=== PATIENT | female | born 1970 | race Caucasian/White ===

== ENCOUNTER 2021-02-11 17:45 | Outpatient (CLI) | payer OTHER, SELFPAY ==
--- NOTE | ~2021-02-11 | XR_ITS ---
EXAMINATION: XR abdomen obstructive series EXAM DATE: 02/11/2021 18:08 INDICATION: Nausea And Vomiting w/ all over abd pain x 2days. TECHNIQUE: Frontal upright projection of the upper abdomen, frontal projection of the lower abdomen f or interpretation. There is no prior study for comparison. FINDINGS: There is expected amount of colonic stool and gas. No small bowel dilation, nonobstructiv e bowel gas pattern. There are no suspicious calcifications identified. There is no organomegaly suspected. The bones are unremarkable. There is no free intraperitoneal air. The lung bases are clear. IMPRESSION: Unremarkable abdomen x-ray exam. Reviewed, dictated and finalized at location A. [employer]PERATOR
== END 2021-02-11 17:46 | disposition home or self-care (01) ==
LOC: ANHIMG 17:51
PROVIDERS: PCP Physician Assistant; Visit Provider Physician Assistant
DX: R11.2 Nausea with vomiting, unspecified (principal)
CPT/HCPCS: 74019

== ENCOUNTER 2022-02-22 18:00 | Emergency (ER) | payer BC, SELFPAY ==
--- NOTE | 2022-02-22 18:07 | ED.FEMALEGU ---
HPI - Female Genitourinary General Chief complaint: Urogenital-Female Stated complaint: URINARY PRESSURE/NAUSEA/ABD PAIN/STREP EXPOSURE Time Seen by Provider: 02/22/22 18:07 Source: patient and RN notes reviewed History of Present Illness HPI Narrative: PATIENT IS A 51-YEAR-OLD FEMALE WHO PRESENTS TO URGENT CARE WITH COMPLAINTS OF POSSIBLE UTI. PATIENT STATES THAT SINCE YESTERDAY SHE HAS HAD SUPRAPUBIC PRESSURE, NAUSEA AND HAD SOME DRY HEAVES THIS AFTERNOON. PATIENT DENIES ANY FEVERS BUT STATES SHE HAS HAD CHILLS AND A HEADACHE. PATIENT HAS TAKEN ADVIL AND 2 DOSES OF AZO TODAY. DENIES ANY HEMATURIA. PATIENT ALSO STATES THAT HER SON IS POSITIVE FOR STREP AND SHE IS CONCERNED THAT HER SYMPTOMS MAY BE CONSISTENT FOR STREP THROAT. PATIENT HAS HAD HER TONSILS REMOVED BUT STATES SHE HAS HAD STREP SINCE THEN. CURRENTLY DENIES A SORE THROAT. NO OTHER ACUTE COMPLAINTS. NO ACUTE DISTRESS NOTED. PATIENT AWARE OF THE PLAN OF CARE. SOME PARTS OF THIS DICTATION WERE GENERATED BY VOICE RECOGNITION SOFTWARE AND MAY CONTAIN TYPOGRAPHICAL AND/OR GRAMMATICAL INACCURACIES. Related Data Home Medications Medication Instructions Recorded Confirmed budesonide-formoterol HFA 80 inhalation 02/22/22 mcg-4.5 mcg/actuation aerosol inhaler (Symbicort) gabapentin 100 mg capsule mg 02/22/22 pantoprazole 40 mg tablet,delayed mg PO 02/22/22 release thyroid (pork) 60 mg tablet mg 02/22/22 ([place] Thyroid) Allergies Allergy/AdvReac Type Severity Reaction Status Date / Time clarithromycin Allergy Severe DIFFICULTY Verified 02/22/22 18:12 BREATHING clindamycin Allergy Severe DIFFICULTY Verified 02/22/22 18:12 BREATHING Review of Systems Review of Systems: CONSTITUTIONAL: Denies fever, chills, or sweats. EYES: Denies visual changes, redness, or discharge. ENT: Denies rhinorrhea, congestion, sore throat, or otalgia. CARDIOVASCULAR: Denies chest pain, palpitations, or edema. RESPIRATORY: Denies cough or dyspnea. GASTROINTESTINAL: Reports nausea and lower abdominal distension GENITOURINARY: Reports of dysuria, suprapubic pressure SKIN: Denies rash or itching. MUSCULOSKELETAL: Denies back pain, joint pain, or myalgia. NEUROLOGIC: Denies headache, numbness, or weakness. All other systems reviewed are negative, except as documented in HPI. PMFSH Comments At the time of my signature, I reviewed and agree with the nursing past medical, surgical, social, and family history. There is no relevant family history pertinent to the patient complaint. Exam Narrative: GENERAL: This is a well-nourished, well-developed patient, in no apparent distress. HEAD: normocephalic, atraumatic. EYES: PERRL. Sclera clear/white. Vision is grossly intact. EARS: External ears normal, auditory canals clear and without drainage, TMs normal without perforation. Hearing grossly intact. NOSE: External nose normal with no obvious nasal discharge, nares without redness, no rhinorrhea. THROAT: Mucous membranes moist, posterior pharynx clear. Mild postnasal drainage NECK: Neck supple, non-tender without lymphadenopathy CARDIOVASCULAR: Regular rate and rhythm RESPIRATORY: Clear to auscultation. Breath sounds equal bilaterally. No wheezes, rales, or rhonchi. GASTROINTESTINAL: Abdomen soft, non-tender, nondistended. Bowel sounds are active. SKIN: warm, intact with no suspicious lesions or rash, good texture and turgor. NEURO: awake, alert, and oriented to person, place and time. There were no obvious focal neurologic abnormalities. EXTREMITIES: No clubbing, cyanosis, or edema. BACK: NEGATIVE BILATERAL CVA TENDERNESS Course Course Level of Care: Express Care Visit Vital Signs Vital signs: Vital Signs Temperature 98 F 02/22/22 18:14 Pulse Rate 90 02/22/22 18:14 Respiratory Rate 16 02/22/22 18:14 Blood Pressure 138/93 H 02/22/22 18:14 Pulse Oximetry 100 02/22/22 18:14 Temperature 98 F 02/22/22 18:14 Pulse Rate 90 02/22/22 18:14
[2022-02-22 18:14] VITALS: BP 138/93; PULSE 90; RESP 16; TEMP 36.6; O2SAT 100
== END 2022-02-22 18:47 | disposition home or self-care (01) ==
PROVIDERS: Emergency Provider Nurse Practitioner Family; PCP Physician Assistant
DX: N39.0 Urinary tract infection, site not specified (principal); J45.909 Unspecified asthma, uncomplicated; K21.9 Gastro-esophageal reflux disease without esophagitis; E03.9 Hypothyroidism, unspecified
CPT/HCPCS: 81003; 87081; 87086; 87088; 87880; 99213; G0463